=== PATIENT | male | born 2000 | race Caucasian/White ===

== ENCOUNTER 2023-05-12 21:00 | Emergency (ER) | payer OTHER, SELFPAY ==
[2023-05-12 21:07] VITALS: BP 145/91; PULSE 104; RESP 16; TEMP 37.2; O2SAT 98; BMI 31.7
--- NOTE | 2023-05-12 21:15 | PC.NURSE ---
Lab states no drug screen needed
--- NOTE | 2023-05-12 21:24 | XR_ITS ---
[facility] [id number] Patient Name: KERA HERNANDEZ MRN: [id number] date: 2000 Sex: M Assigned Patient Location: ER Current Patient Location: ED.MAIN Accession/Order Number: [id number] Exam Date: 05/12/2023 21:46 Report Date: 05/12/2023 22:09 At the request of: ELBA MCKEON Procedure: XR pelvis 1-2V EXAM: XR pelvis 1-2V, XR lumbar spine 2-3V TECHNIQUE: Single AP view pelvis. AP and lateral views of the lumbar spine. HISTORY: injury COMPARISON: None. FINDINGS: No acute fracture or dislocation. Lumbar spine alignment is maintained. There are no arthritic changes of the pelvis or lumbar spine. Soft tissues are unremarkable. XR/XR pelvis 1-2V IMPRESSION: No acute findings of the lumbar spine or pelvis. Electronically authenticated by: GABRIELLA JIN Date: 05/12/2023 22:09
--- NOTE | 2023-05-12 21:24 | XR_ITS ---
[facility] [id number] Patient Name: KERA HERNANDEZ MRN: [id number] date: 2000 Sex: M Assigned Patient Location: ER Current Patient Location: ED.MAIN Accession/Order Number: [id number] Exam Date: 05/12/2023 21:46 Report Date: 05/12/2023 22:09 At the request of: ELBA MCKEON Procedure: XR lumbar spine 2-3V EXAM: XR pelvis 1-2V, XR lumbar spine 2-3V TECHNIQUE: Single AP view pelvis. AP and lateral views of the lumbar spine. HISTORY: injury COMPARISON: None. FINDINGS: No acute fracture or dislocation. Lumbar spine alignment is maintained. There are no arthritic changes of the pelvis or lumbar spine. Soft tissues are unremarkable. XR/XR lumbar spine 2-3V IMPRESSION: No acute findings of the lumbar spine or pelvis. Electronically authenticated by: GABRIELLA JIN Date: 05/12/2023 22:09
--- NOTE | 2023-05-12 21:25 | ED.BACK1 ---
HPI - Back Pain/Injury General Chief Complaint: Back Pain/Injury Stated Complaint: HURT BACK AT WORK Time Seen by Provider: 05/12/23 21:22 Source: patient Mode of arrival: walk-in Limitations: no limitations History of Present Illness HPI Narrative: describes standing up to walk away from a desk and his foot got caught. Incident occurred about 6 hours ago. Now presents with pain of his lower back and right groin area. No leg weakness or numbness. No associated abdominal pain MD elicited complaint: Reports back pain Related Data Home Medications ?Medication ?Instructions ?Recorded ?Confirmed celecoxib 200 mg capsule (Celebrex) 200 mg PO DAILY 05/12/23 05/12/23 lidocaine 5 % topical patch 1 patch topical DAILY 05/12/23 05/12/23 mirtazapine 15 mg tablet 15 mg PO DAILY 05/12/23 05/12/23 naltrexone 50 mg tablet 50 mg PO DAILY 05/12/23 05/12/23 pantoprazole 20 mg tablet,delayed 20 mg PO DAILY 05/12/23 05/12/23 release Allergies Allergy/AdvReac Type Severity Reaction Status Date / Time No Known Drug Allergies Allergy Verified 05/12/23 21:10 Review of Systems ROS Status of ROS 10 or more systems reviewed and unremarkable except as noted in history and below Exam Constitutional Vital Signs, click to edit/add: Last Vital Signs Temp 98.9 F 05/12/23 21:07 Pulse 96 H 05/12/23 22:18 Resp 16 05/12/23 22:18 BP 123/83 05/12/23 22:18 Pulse Ox 98 05/12/23 22:18 O2 Del Method Room Air 05/12/23 22:18 Common normals: no apparent distress, average body habitus, oriented x3, no limitations, alert and well nourished [facility] Common normals: normocephalic and head/scalp atraumatic Eye Common normals: EOMs intact bilaterally and conjunctivae normal Respiratory Common normals: normal respiratory effort, no retractions, no use of accessory muscles and clear to auscultation bilaterally Cardio Common normals: regular rate, regular rhythm, S1 normal heart sound and S2 normal heart sound GI Common normals: Normal to inspection, nondistended, normoactive bowel sounds present, soft to palpation and non-tender Back & Pelvis Other: right lumbar paravertebral tenderness Extremity Common normals: normal to inspection and full ROM Other: right hip nontender. hurts right groin when he lift right leg off the floor onto the gurney Neuro Common normals: oriented x3, CN's II-XII intact bilaterally and moves all extremities Psych Appearance: grossly normal Course Vital Signs Vital signs: Vital Signs Temperature 98.9 F 05/12/23 21:07 Pulse Rate 104 H 05/12/23 21:07 Respiratory Rate 16 05/12/23 21:07 Blood Pressure 145/91 H 05/12/23 21:07 Pulse Oximetry 98 05/12/23 21:07 Oxygen Delivery Method Room Air 05/12/23 21:07 Temperature 98.9 F 05/12/23 21:07 Pulse Rate 96 H 05/12/23 22:18 Respiratory Rate 16 05/12/23 22:18 Blood Pressure 123/83 05/12/23 22:18 Pulse Oximetry 98 05/12/23 22:18 Oxygen Delivery Method Room Air 05/12/23 22:18 MDM - Back Pain/Injury MDM Narrative Medical decision making narrative: patient's right leg got caught in a cord as he was walking away and he pulled his lower back and groin area. Has pain and mild tenderness. Normal gait. Normal N/V exam. Xrays neg. Patient advised of diagnosis and given restrictions to return to work Imaging Data Chest x-ray: Radiologist's impression: ITS Impressions Lumbar Spine X-Ray 05/12/23 21:24 IMPRESSION: No acute findings of the lumbar spine or pelvis. Electronically authenticated by: GABRIELLA JIN Date: 05/12/2023 22:09 Pelvis X-Ray 05/12/23 21:24 IMPRESSION: No acute findings of the lumbar spine or pelvis. Electronically authenticated by: GABRIELLA JIN Date: 05/12/2023 22:09 Discharge Plan Discharge Stand Alone Forms: Portal Instructions Chief Complaint: Back Pain/Injury Clinical Impression: Strain of right groin, Strain of lumbar region Patient Disposition: Home, Self-Care Prescriptions / Home Meds: No Action celecoxib [Celebrex] 200 mg capsule 200 mg PO DAILY lidocaine 5 % adhesive patch,medicated 1 patch topical DAILY Rx Instructions: leave on most painful area for up to 12 hrs mirtazapine 15 mg tablet 15 mg PO DAILY pantoprazole 20 mg tablet,delayed release (DR/EC) 20 mg PO DAILY naltrexone 50 mg tablet 50 mg PO DAILY Print Language: Thai Instructions: Low Back Strain (ED), Groin Strain (ED) Additional Instructions: followup with [facility] Sunday Referrals: Physician,Non-Staff, MD [Primary Care Provider] - 1 week
[2023-05-12 22:18] VITALS: BP 123/83; PULSE 96; RESP 16; O2SAT 98
[2023-05-12] MEDS: KETOROLAC TROMETHAMINE 60 MG/2 ML VIAL IM (22:50)
== END 2023-05-12 23:19 | disposition home or self-care (01) ==
PROVIDERS: Emergency Provider Internal Medicine
DX: S39.012A Strain of muscle, fascia and tendon of lower back, initial encounter (principal); S39.011A Strain of muscle, fascia and tendon of abdomen, initial encounter; W22.8XXA Striking against or struck by other objects, initial encounter
CPT/HCPCS: 72100; 72170; 96372; 99284